=== PATIENT | female | born 1955 | race African-American/Black ===

== ENCOUNTER 2016-06-10 19:00 | Emergency (ER) ==
--- NOTE | 2016-06-10 20:56 | PROVIDER DOCUMENTATION ---
HPI-General Adult <ChristianoAnujJn Manning - Last Filed: 06/10/16 20:55> - General Source: patient - History of Present Illness -Gen Adult Nature of Presenting Problems: 60 year old F presents to the ED with a cc of difficulty swallowing. Pt states that she noticed this a few months ago. Pt states that she has to drink hot tea after eating to help pass food down. PT states that she has also noticed her lately that just below her temples is hollowed out. Pt denies weight loss. Severity: reports: mild Onset/Duration: reports: other (months) Timing: reports: still present Context/Activities at Onset: reports: none Modifying Factors: improves with: nothing Associated Symptoms: reports: EENT symptoms Similar Symptoms Previously?: No Recently seen or treated by another doctor?: No <Enriqueta Jerez - Last Filed: 06/10/16 21:27> - General Chief Complaint: General Adult Stated Complaint: NECK PAIN Time Seen by Provider: 06/10/16 20:54 Allergies/Adverse Reactions: Patient Allergies Allergy/AdvReac Type Severity Reaction Status Date / Time No Known Allergies Allergy Verified 06/10/16 21:18 Home Medications: Home Medication List Medication Instructions Recorded Confirmed Last Taken Type No Home Medications 06/10/16 06/10/16 Unknown History Review of Systems - Adult - REVIEW OF SYSTEMS - ADULT Constitutional: denies: chills, fever Eyes: reports: no symptoms reported Ears, Nose, Mouth & Throat: denies: ear pain, throat pain Cardiovascular: reports: no symptoms reported Respiratory: reports: no symptoms reported Gastrointestinal: denies: nausea, vomiting Genitourinary: reports: no symptoms reported Musculoskeletal: reports: no symptoms reported Integumentary: reports: no symptoms reported Neurological: reports: no symptoms reported Psychiatric: reports: no symptoms reported Endocrine: reports: no symptoms reported Hematologic/Lymphatic: reports: no symptoms reported Allergic/Immunologic: reports: no symptoms reported All Other Systems: Reviewed and Negative <Enriqueta Jerez - Last Filed: 06/10/16 21:27> Past History - Adult - PAST MEDICAL HISTORY-ADULT Review of Records: reports: Nursing Assessment Review, Medications Reviewed Major Childhood Illnesses: reports: denies history - PRIOR SURGERIES/PROCEDURES Surgical/Procedure History: reports: none - IMMUNIZATION STATUS Childhood Immunizations: See Nurse Assessment Flu Vaccine: See Nurse Assessment - SOCIAL HISTORY Smoking: non-smoker Substance Use: none/never Alcohol Use Frequency: never <Solitario,Enriqueta - Last Filed: 06/10/16 21:27> Physical Exam-General - PHYSICAL EXAM-ADULT Initial Vital Signs Reviewed: Yes - CONSTITUTIONAL General Appearance: appears well, alert, no apparent distress - NECK Neck: non-tender, full range of motion, supple, normal inspection - RESPIRATORY Respiratory: chest non-tender, lungs clear, normal breath sounds - CARDIOVASCULAR Cardiovascular: normal peripheral pulses, regular rate, rhythm, no edema - MUSCULOSKELETAL Extremity: normal inspection - SKIN Integumentary: normal color, normal turgor, warm/dry - PSYCHIATRIC Psych/Mental Status: normal mood/affect, normal thought content, normal thought process, oriented x 3 <SolitarioEnriqueta - Last Filed: 06/10/16 21:27> Progress - PLAN OF CARE/RESULTS Progress/Plan/Lab Results: Vital Signs - 24 hr 06/10/16 06/10/16 19:10 21:18 Temperature 97.8 F Pulse Rate 66 67 Respiratory 18 20 Rate Blood Pressure 174/118 158/97 O2 Sat by Pulse 100 100 Oximetry Pt given results and will be d/c home w/o rx to follow up with PCP. Pt verbally understood instructions. PT remained clinically stable throughout the course of the ED stay and will return if symptoms worsen. <Enriqueta Jerez - Last Filed: 06/10/16 21:27> Departure - Departure Time of Disposition Order: 20:55 Certified Medical Emergency: Emergent <Jn Ruiz - Last Filed: 06/10/16 20:55> <Enriqueta Jerez - Last Filed: 06/10/16 21:27> - Departure DIAGNOSIS: Dysphagia Qualifiers: Dysphagia type: unspecified Qualified Code(s): R13.10 - Dysphagia, unspecified Disposition: HOME 01 Condition: Good Additional Instructions: ED Follow Up Instructions: You have been treated by a care provider in the Emergency Department. These instructions are being provided to you so you can have an understanding of how to care for yourself upon discharge. Upon discharge from the Emergency Department, you are responsible for making arrangements for follow-up care by a physician of your choice. Take all prescribed medications as directed. Return to the Emergency Department immediately for any new or worsening symptoms. You may call the Physician Referral phone number at [phone] to obtain a list of Physicians who are taking new patients. Referrals: None,PCP [Primary Care Provider] - Fara Zhou MD [STAFF PHYSICIAN] - Instructions: Dysphagia Attestation - Scribe Verification/Attestation Scribe:: Enriqueta Jerez Acting as Scribe for:: Jn Ruiz Scribe documention review:: This chart was documented by a scribe and accurately reflects the service the provider performed and the decisions made by the provider. <Enriqueta Jerez - Last Filed: 06/10/16 21:27> Physician Attestation
[2016-06-10 21:19] VITALS: BP 158/97
== END 2016-06-10 21:19 | disposition home or self-care (01) ==
LOC: ED 19:00
DX: R13.10 Dysphagia, unspecified (principal); M54.2 Cervicalgia